=== PATIENT | male | born 1995 ===

== ENCOUNTER → 2020-08-19 | Emergency (ER) | payer OTHER ==
[~2020-08-19] VITALS: Ht 177.8 cm; Wt 86.2 kg
== END | disposition home or self-care (01) ==
LOC: ER 12:50
DX: S00.83XA Contusion of other part of head, initial encounter (principal); S30.1XXA Contusion of abdominal wall, initial encounter; S20.213A Contusion of bilateral front wall of thorax, initial encounter; S50.12XA Contusion of left forearm, initial encounter; W18.39XA Other fall on same level, initial encounter; Y93.89 Activity, other specified; Y92.098 Other place in other non-institutional residence as the place of occurrence of the external cause; Y99.8 Other external cause status; I95.9 Hypotension, unspecified; M62.82 Rhabdomyolysis; M79.632 Pain in left forearm; M60.832 Other myositis, left forearm; F20.89 Other schizophrenia